=== PATIENT | male | born 1955 | race Caucasian/White ===

== ENCOUNTER → 2016-03-07 | Outpatient (CLI) | payer BC ==
[~2016-03-07] MED LIST: /NITR4TASL SL; ACET50TA PO; ALDA25TA2 PO; ALLO300T2 PO; ASPI325T PO; ASPI32ECTA PO; ATOR1TAB19 PO; AUGM12TA3 PO; BUME0.5T PO; BUME1TAB13 PO; BYET10IN SC; CARV25TA PO; CORE25TA PO; GLIM1TAB PO; GLIM4TAB PO; GLUC4GMTAB PO; INSULANT SC; KLOR20TA PO; LISI2.5T PO; METO2.5T PO; MULTTAB4 PO; PROBCAP4 PO; SPIR25TA2 PO; ZEST2.5T3 PO; [UNRECOGNIZED DRUG - CODE] PO; [UNRECOGNIZED DRUG - OTHER] OR; [UNRECOGNIZED DRUG - OTHER] PO
[2016-03-07 14:02] LABS: ALBUMIN 3.5 GM/DL (3.2-5.2); ALBUMIN/GLOBULIN RATIO 0.9 (1.00-1.93); BILIRUBIN,TOTAL 0.4 MG/DL (0.2-1.0); CREATININE FOR GFR 1.75 MG/DL (0.70-1.30); GLOMERULAR FILTRATION RATE 42.3 (>49); POTASSIUM SERUM 5.1 MEQ/L (3.5-5.1); TOTAL PROTEIN 7.4 GM/DL (6.4-8.2)
== END ==
LOC: M LAB 06:06
PROVIDERS: ATTEND Physician Assistant
DX: I50.32 Chronic diastolic (congestive) heart failure (principal); I25.10 Atherosclerotic heart disease of native coronary artery without angina pectoris; E78.00 Pure hypercholesterolemia, unspecified; E83.42 Hypomagnesemia

== ENCOUNTER → 2016-10-11 | Outpatient (CLI) | payer BC ==
[~2016-10-11] MED LIST changes: +ATOR80TA59 PO; +INVO100T PO; +LEVO25TA5 PO; +MAGN64TASA PO; +NOVOINJ3; +TOUJ1.2I SC
[2016-10-11 07:07] LABS: ALBUMIN 3.3 GM/DL (3.2-5.2); ALBUMIN/GLOBULIN RATIO 0.79 (1.00-1.93); BILIRUBIN,TOTAL 0.6 MG/DL (0.2-1.0); CALCIUM LEVEL 9.5 MG/DL (8.8-10.2); CREATININE FOR GFR 1.48 MG/DL (0.70-1.30); GLOMERULAR FILTRATION RATE 51.3 (>49); MAGNESIUM LEVEL 2.2 MG/DL (1.8-2.4); POTASSIUM SERUM 4.2 MEQ/L (3.5-5.1); TOTAL PROTEIN 7.5 GM/DL (6.4-8.2)
== END ==
LOC: M LAB 06:10
PROVIDERS: ATTEND Physician Assistant
DX: I50.32 Chronic diastolic (congestive) heart failure (principal); E78.2 Mixed hyperlipidemia

== ENCOUNTER → 2016-10-31 | Outpatient (REF) | payer BC | LOC: M LAB REF 14:09 | PROVIDERS: ATTEND Podiatrist | DX: E11.9 Type 2 diabetes mellitus without complications (principal) ==

== ENCOUNTER 2016-12-11 07:51 | Day surgery (SDC) | payer BC ==
[~2016-12-11] VITALS: Ht 182.9 cm; Wt 127.0 kg
[2016-12-11] MEDS ORDERED: NS 1,000 ML IV SCH (08:45)
[2016-12-11] MEDS ORDERED: LIDOCAINE 2% INJ 100 MG/5 ML SDV (FOR ANES.) As Ordered ONE (09:27)
[2016-12-11] MEDS ORDERED: PROPOFOL 200 MG/20 ML VIAL As Ordered ONE (09:27)
--- NOTE | 2016-12-11 09:40 | ROOR ---
Patient Name: Joe Rodriguez Procedure Date: 12/11/2016 8:59 AM Date of : 1955 Age: 61 Room: [facility] Gender: Male Note Status: Finalized Procedure: Colonoscopy Indications: Screening for colorectal malignant neoplasm Providers: Lopez Hanna MD Referring MD: Samreen Rose NP Requesting Provider: Medicines: Monitored Anesthesia Care Complications: No immediate complications. Procedure: Pre-Anesthesia Assessment: - Prior to the procedure, a History and Physical was performed, and patient medications and allergies were reviewed. The patient is competent. The risks and benefits of the procedure and the sedation options and risks were discussed with the patient. All questions were answered and informed consent was obtained. Patient identification and proposed procedure were verified by the physician, the nurse and the supervisor kennel in the procedure room. Mental Status Examination: alert and oriented. Airway Examination: normal oropharyngeal airway and neck mobility. Respiratory Examination: clear to auscultation. CV Examination: normal. Prophylactic Antibiotics: The patient does not require prophylactic antibiotics. Prior Anticoagulants: The patient has taken no previous anticoagulant or antiplatelet agents. ASA Grade Assessment: III - A patient with severe systemic disease. After reviewing the risks and benefits, the patient was deemed in satisfactory condition to undergo the procedure. The anesthesia plan was to use monitored anesthesia care (MAC). Immediately prior to administration of medications, the patient was re-assessed for adequacy to receive sedatives. The heart rate, respiratory rate, oxygen saturations, blood pressure, adequacy of pulmonary ventilation, and response to care were monitored throughout the procedure. The physical status of the patient was re-assessed after the procedure. The Colonoscope was introduced through the anus and advanced to the cecum, identified by appendiceal orifice and ileocecal valve. The colonoscopy was performed without difficulty. The patient tolerated the procedure well. The quality of the bowel preparation was adequate to identify polyps 6 mm and larger in size and fair. The ileocecal valve, appendiceal orifice, and rectum were photographed. Scope insertion time was 3 minutes. Scope withdrawal time was 10 minutes. The total duration of the procedure was 16 minutes. Findings: The perianal and digital rectal examinations were normal. Three sessile polyps were found in the ascending colon. The polyps were 2 to 3 mm in size. These polyps were removed with a cold biopsy forceps. Resection and retrieval were complete. Verification of patient identification for the specimen was done by the physician and nurse using the patient's name, date and medical record number. Estimated blood loss was minimal. A 3 mm polyp was found in the transverse colon. The polyp was sessile. The polyp was removed with a cold biopsy forceps. Resection and retrieval were complete. Two sessile polyps were found in the recto-sigmoid colon. The polyps were 3 to 4 mm in size. These polyps were removed with a cold biopsy forceps. Resection and retrieval were complete. Discontinuous areas of nonbleeding ulcerated mucosa with no stigmata of recent bleeding were present in the transverse colon and in the ascending colon. Biopsies were taken with a cold forceps for histology. External and internal hemorrhoids were found during retroflexion. The hemorrhoids were small. Impression: - Preparation of the colon was fair. - Three 2 to 3 mm polyps in the ascending colon, removed with a cold biopsy forceps. Resected and retrieved. - One 3 mm polyp in the transverse colon, removed with a cold biopsy forceps. Resected and retrieved. - Two 3 to 4 mm polyps at the recto-sigmoid colon, removed with a cold biopsy forceps. Resected and retrieved. - Mucosal ulceration. Biopsied. - External and internal hemorrhoids. Recommendation: - Patient has a contact number available for emergencies. The signs and symptoms of potential delayed complications were discussed with the patient. Return to normal activities tomorrow. Written discharge instructions were provided to the patient. - Resume previous diet. - Continue present medications. - Await pathology results. - Repeat colonoscopy in 3 - 5 years for surveillance based on pathology results. - Return to GI clinic as previously scheduled on 12/21/2016 at 11:15 AM. - Return to primary care physician. Lopez Hanna MD Lopze Hanna MD 12/11/2016 9:40:17 AM This report has been signed electronically. Number of Addenda: 0 Note Initiated On: 12/11/2016 8:59 AM Estimated Blood Loss: Estimated blood loss was minimal.
[2016-12-11 10:04] VITALS: BP 93/59
== END 2016-12-11 10:00 | disposition home or self-care (01) ==
LOC: M OPP 07:51 → EDSTATUS 08:45 → M OPP 10:00
PROVIDERS: ATTEND Internal Medicine Gastroenterology
DX: Z12.11 Encounter for screening for malignant neoplasm of colon (principal); K63.5 Polyp of colon; D12.3 Benign neoplasm of transverse colon; K63.3 Ulcer of intestine; I25.10 Atherosclerotic heart disease of native coronary artery without angina pectoris; I10 Essential (primary) hypertension; E78.00 Pure hypercholesterolemia, unspecified; E11.21 Type 2 diabetes mellitus with diabetic nephropathy; E03.9 Hypothyroidism, unspecified; M10.9 Gout, unspecified; G62.9 Polyneuropathy, unspecified; Z87.891 Personal history of nicotine dependence; Z79.899 Other long term (current) drug therapy; Z79.82 Long term (current) use of aspirin; Z95.1 Presence of aortocoronary bypass graft

== ENCOUNTER → 2017-01-11 | Outpatient (CLI) | payer BC ==
[2017-01-11 07:17] LABS: ALBUMIN 3.4 GM/DL (3.2-5.2); CALCIUM LEVEL 9.1 MG/DL (8.8-10.2); CREATININE FOR GFR 1.96 MG/DL (0.70-1.30); MAGNESIUM LEVEL 2.3 MG/DL (1.8-2.4); PHOSPHORUS LEVEL 3.1 MG/DL (2.5-4.9)
== END ==
LOC: M LAB 06:12
PROVIDERS: ATTEND Physician Assistant
DX: I50.32 Chronic diastolic (congestive) heart failure (principal); E83.42 Hypomagnesemia

== ENCOUNTER → 2017-01-23 | Outpatient (CLI) | payer BC ==
--- NOTE | 2017-01-23 16:30 | REP ---
Clinical: Recent trauma with continued pain and swelling . Technique: Trevino scale and color Doppler evaluation using linear high frequency transducer. Findings: Ultrasound examination of the left lower extremity deep venous structures from the common femoral vein to the popliteal vein demonstrates normal compressibility flow and wave patterns in response to respiration and augmentation. There is no evidence for deep venous thrombosis. Impression: No evidence for deep venous thrombosis. Signed by Adrien Dey MD 01/23/2017 03:42 P
== END ==
LOC: M RAD 14:52
PROVIDERS: ATTEND Podiatrist
DX: I82.432 Acute embolism and thrombosis of left popliteal vein (principal)

== ENCOUNTER → 2017-04-02 | Outpatient (CLI) | payer BC | LOC: M RAD 14:04 | DX: M66.372 Spontaneous rupture of flexor tendons, left ankle and foot (principal) | CPT/HCPCS: 73721 ==

== ENCOUNTER → 2017-07-15 | Outpatient (CLI) | payer BC ==
[2017-07-15 07:33] LABS: ALBUMIN 3.6 GM/DL (3.2-5.2); ANION GAP 6 MEQ/L (8-16); BLOOD UREA NITROGEN 42 MG/DL (7-18); CALCIUM LEVEL 9.3 MG/DL (8.8-10.2); CARBON DIOXIDE LEVEL 33 MEQ/L (21-32); CHLORIDE LEVEL 98 MEQ/L (98-107); CREATININE FOR GFR 1.48 MG/DL (0.70-1.30); GLOMERULAR FILTRATION RATE 51.1 (>49); GLUCOSE, FASTING 218 MG/DL (70-100); PHOSPHORUS LEVEL 3.3 MG/DL (2.5-4.9); POTASSIUM SERUM 3.9 MEQ/L (3.5-5.1); SODIUM LEVEL 137 MEQ/L (136-145)
== END ==
LOC: M LAB 06:23
DX: I50.32 Chronic diastolic (congestive) heart failure (principal)
CPT/HCPCS: 80069

== ENCOUNTER → 2017-09-17 | Outpatient (REF) | payer BC | LOC: M LAB REF 17:24 | DX: L03.039 Cellulitis of unspecified toe (principal) | CPT/HCPCS: 87186 ==

== ENCOUNTER 2017-09-27 12:38 | Day surgery (SDC) | payer BC ==
[~2017-09-27 12:38] MED LIST changes: -/NITR4TASL SL; -ACET50TA PO; -ALDA25TA2 PO; -ALLO300T2 PO; -ASPI325T PO; -ASPI32ECTA PO; -ATOR1TAB19 PO; -ATOR80TA59 PO; -AUGM12TA3 PO; -BUME0.5T PO; -BUME1TAB13 PO; -BYET10IN SC; -CARV25TA PO; -CORE25TA PO; -GLIM1TAB PO; -GLIM4TAB PO; -GLUC4GMTAB PO; -INSULANT SC; -INVO100T PO; -KLOR20TA PO; -LEVO25TA5 PO; -LISI2.5T PO; +LR 1,000 ML IV; -MAGN64TASA PO; -METO2.5T PO; -MULTTAB4 PO; -NOVOINJ3; -PROBCAP4 PO; -SPIR25TA2 PO; -TOUJ1.2I SC; -ZEST2.5T3 PO; -[UNRECOGNIZED DRUG - CODE] PO; -[UNRECOGNIZED DRUG - OTHER] OR; -[UNRECOGNIZED DRUG - OTHER] PO
[2017-09-27] MEDS ORDERED: LIDOCAINE 2% INJ 100 MG/5 ML SDV (FOR ANES.) As Ordered ×2 (13:36)
[2017-09-27] MEDS ORDERED: fentaNYL 100 MCG/2 ML INJECTION (J3010) As Ordered ×2 (13:36)
[2017-09-27] MEDS ORDERED: MIDAZOLAM INJ 2 MG/2 ML VIAL (J2250) As Ordered ×2 (13:36)
[2017-09-27] MEDS ORDERED: PROPOFOL 200 MG/20 ML VIAL As Ordered ×4 (13:36→14:19)
[2017-09-27] MEDS ORDERED: CARVedilol 6.25 MG TAB As Ordered ×2 (13:48)
[2017-09-27 13:52] LABS: BEDSIDE GLUCOSE 268 MG/DL (80-115)
[2017-09-27] MEDS: CARVedilol 12.5 MG TAB PO ×2 (13:52)
[2017-09-27] MEDS ORDERED: HumaLOG INSULIN (NovoLOG) PER UNIT As Ordered ×2 (13:57)
[2017-09-27] MEDS: HumaLOG INSULIN (NovoLOG) PER UNIT SC ×2 (14:00)
[2017-09-27] MEDS: BUPIVACAINE HCL 0.5% 10 ML VIAL As Ordered ×2 (14:14)
[2017-09-27] MEDS: LIDOCAINE 2% MDV 20 ML VIAL As Ordered ×2 (14:14)
[2017-09-27] MEDS: UNASYN 1.5 GM VIAL As Ordered ×2 (14:41)
[2017-09-27] MEDS ORDERED: LR 1,000 ML IV ×2 (15:30)
[2017-09-27] MEDS ORDERED: HYDROMORPHONE HCL 0.5 MG/ 0.5 ML SYRINGE (J1170 PER 1) IV ×2 (15:30)
[2017-09-27] MEDS ORDERED: PERCOCET 5MG/325MG TAB PO ×2 (15:30)
[2017-09-27] MEDS ORDERED: ONDANSETRON 4MG/2ML VIAL (J2405) IV ×2 (15:30)
[2017-09-27] MEDS ORDERED: fentaNYL 100 MCG/2 ML INJECTION (J3010) IV ×2 (15:30)
== END 2017-09-27 15:56 | disposition home or self-care (01) ==
LOC: M SDC 12:38
DX: M86.172 Other acute osteomyelitis, left ankle and foot (principal); I25.10 Atherosclerotic heart disease of native coronary artery without angina pectoris; I10 Essential (primary) hypertension; E78.00 Pure hypercholesterolemia, unspecified; M10.9 Gout, unspecified; E11.9 Type 2 diabetes mellitus without complications; E03.9 Hypothyroidism, unspecified; Z95.1 Presence of aortocoronary bypass graft; Z79.82 Long term (current) use of aspirin; Z79.4 Long term (current) use of insulin; Z79.899 Other long term (current) drug therapy
CPT/HCPCS: 28825

== ENCOUNTER → 2018-02-04 | Outpatient (CLI) | payer BC ==
[2018-02-04 07:51] LABS: ANION GAP 6 MEQ/L (8-16); BLOOD UREA NITROGEN 45 MG/DL (7-18); CALCIUM LEVEL 8.8 MG/DL (8.8-10.2); CARBON DIOXIDE LEVEL 33 MEQ/L (21-32); CHLORIDE LEVEL 95 MEQ/L (98-107); CREATININE FOR GFR 1.65 MG/DL (0.70-1.30); GLOMERULAR FILTRATION RATE 44.9 (>49); GLUCOSE, FASTING 278 MG/DL (70-100); MAGNESIUM LEVEL 1.8 MG/DL (1.8-2.4); POTASSIUM SERUM 4.3 MEQ/L (3.5-5.1); SODIUM LEVEL 134 MEQ/L (136-145)
== END ==
LOC: M LAB 06:43
DX: I50.32 Chronic diastolic (congestive) heart failure (principal); E83.42 Hypomagnesemia
CPT/HCPCS: 83735

== ENCOUNTER 2018-02-18 03:23 | Emergency (ER) | payer BC ==
[~2018-02-18] VITALS: Ht 185.4 cm; Wt 129.1 kg
[~2018-02-18 03:23] MED LIST changes: +/NITR4TASL SL; +ACET50TA PO; +ALDA25TA2 PO; +ALLO300T2 PO; +ASPI325T PO; +ASPI32ECTA PO; +ATOR1TAB19 PO; +ATOR80TA59 PO; +AUGM12TA3 PO; +BUME0.5T PO; +BUME1TAB13 PO; +BYDU1INJ SC; +BYET10IN SC; +CARV25TA PO; +CORE25TA PO; +GLIM1TAB PO; +GLIM4TAB PO; +GLUC4GMTAB PO; +INSULANT SC; +INVO100T PO; +KLOR20TA PO; +LEVO25TA5 PO; +LISI2.5T PO; -LR 1,000 ML IV; +MAGN64TASA PO; +METO2.5T PO; +MULTTAB4 PO; +NOVOINJ3; +PROBCAP4 PO; +SPIR25TA2 PO; +TOUJ1.2I SC; +TRES1INJ2 SC; +ZEST2.5T3 PO; +[UNRECOGNIZED DRUG - CODE] PO; +[UNRECOGNIZED DRUG - OTHER] OR; +[UNRECOGNIZED DRUG - OTHER] PO
[2018-02-18] MEDS ORDERED: TETANUS/DIPHTHERIA TOX ADSORB ADULT 0.5ML SYR/VIAL (90714) IM ONE (04:15)
--- NOTE | 2018-02-18 04:57 | REPVR ---
EXAM: CT Head Without Contrast EXAM DATE/TIME: 02/18/2018 4:04 AM CLINICAL HISTORY: 62 years old, male; Injury or trauma; Fall; Additional info: Tr TECHNIQUE: Axial computed tomography images of the head/brain without contrast. All CT scans at this facility use at least one of these dose optimization techniques: automated exposure control; mA and/or kV adjustment per patient size (includes targeted exams where dose is matched to clinical indication); or iterative reconstruction. COMPARISON: No relevant prior studies available. FINDINGS: Brain: There is 8mm old lacunar infarct versus prominent Virchow-Juvenal space in the left basal ganglia. Ventricles: There is a cerebral atrophy with secondary ventricular dilatation. Bones/joints: Normal. No acute fracture. Sinuses: Normal as visualized. No acute sinusitis. Mastoid air cells: Normal as visualized. No mastoid effusion. Soft tissues: Normal. IMPRESSION: 1. No CT evidence of intracranial hemorrhage, mass effect or midline shift. 2. Age related cerebral atrophy. 3. 8mm left basal ganglia old lacunar infarct vs prominent Virchow-Juvenal space. Electronically signed by: Perfecto Pruitt On 02/18/2018 04:57:13 AM
--- NOTE | 2018-02-18 06:08 | ECGEPIP ---
Stationary ECG Study [facility] - ED Test Date: 2018-02-18 Pat Name: ROMAINE GALEAS Department: Room: - Gender: M [employer] Teacher: edson : 1955 Requested By: CHON CANDELARIO Order Number: [id number] Reading MD: Emil Hernandez Measurements Intervals [place] Rate: 69 P: 83 [place]: 210 QRS: 35 QRSD: 100 T: 62 QT: 411 QTc: 443 Interpretive Statements SINUS RHYTHM WITH FIRST DEGREE AV BLOCK MINIMAL ST DEPRESSION SIMILAR TO 05/27/12 Electronically Signed On 02-18-2018 6:07:56 EST by Emil Hernandez
[2018-02-18 06:30] VITALS: BP 106/62
[2018-02-18] MEDS ORDERED: NEOSPORIN OINT 0.9 GM PKT (FLOOR STOCK) As Ordered ONE (06:38)
--- NOTE | 2018-02-22 08:46 | ED PDOC ---
Post-Departure Follow-Up radiology report faxed to Thi Cole MD Feb 22, 2018 08:46
== END 2018-02-18 06:41 | disposition home or self-care (01) ==
LOC: M ED 03:23
DX: S01.01XA Laceration without foreign body of scalp, initial encounter (principal); W01.198A Fall on same level from slipping, tripping and stumbling with subsequent striking against other object, initial encounter; Y92.091 Bathroom in other non-institutional residence as the place of occurrence of the external cause; I11.9 Hypertensive heart disease without heart failure; I25.10 Atherosclerotic heart disease of native coronary artery without angina pectoris; E11.9 Type 2 diabetes mellitus without complications; Z79.899 Other long term (current) drug therapy; Z79.82 Long term (current) use of aspirin; Z79.4 Long term (current) use of insulin

== ENCOUNTER → 2018-07-31 | Outpatient (REF) | payer BC ==
[~2018-07-31] MED LIST changes: -/NITR4TASL SL; -ACET50TA PO; -GLUC4GMTAB PO; +LEAD1CHW PO; +MAPA500T17 PO; +NITR0.4S SL
[2018-08-01 14:08] LABS: PHOSPHORUS LEVEL 3.9 MG/DL (2.5-4.9)
[2018-08-04 10:49] LABS: PTH INTACT 17.9 PG/ML (18.5-88.0)
== END ==
LOC: M LAB REF 13:08
PROVIDERS: ATTEND Nurse Practitioner Adult Health
DX: N18.3 Chronic kidney disease, stage 3 (moderate) (principal)

== ENCOUNTER 2019-03-09 07:11 | Emergency (ER) | payer BC ==
[~2019-03-09] VITALS: Ht 185.4 cm; Wt 135.4 kg
[2019-03-09 08:39] LABS: BASO % 0.6 % (0.0-1.0); EOS # 0.3 10^3/uL (0.0-0.5); EOS % 4.2 % (0.0-3.0); HEMATOCRIT 41.5 % (42.0-52.0); HEMOGLOBIN 13.3 g/dl (13.5-17.5); LYMPH % 13.5 % (24.0-44.0); MEAN CORPUSCULAR HEMOGLOBIN 31.3 pg (27.0-33.0); MEAN CORPUSCULAR VOLUME 97.6 fl (80.0-96.0); MONO # 0.7 10^3/uL (0.0-0.8); MONO % 10.3 % (0.0-5.0); NEUTROPHILS # 5.1 10^3/uL (1.5-8.5); NEUTROPHILS % 70.8 % (36.0-66.0); PLATELET COUNT, AUTOMATED 157 10^3/uL (150-450); RED BLOOD COUNT 4.25 10^6/uL (4.30-6.10); WHITE BLOOD COUNT 7.2 10^3/uL (4.0-10.0)
--- NOTE | 2019-03-09 08:55 | REP ---
INDICATION: Right arm seizure PROCEDURE: CT head without contrast COMPARISON STUDIES: 02/18/2018 FINDINGS: There is a mixed density subdural collection on the left that is greater toward the convexity and measures up to 15 mm. This was not evident on the comparison study of February 13, 2019. The ventricles, cisterns and sulci within normal limits. There is no appreciable midline shift. No significant or herniation. IMPRESSION: Mixed density subdural collection over the left hemisphere and in the vicinity of the central sulcus that could correlate to the patient's symptoms. This collection appears to be mostly chronic, but small amount of high-density material layering is concerning for [id number] process. Findings discussed with Dr. Trevino in the emergency department at the time of interpretation. Electronically Signed by Shabbir Varner MD 03/09/2019 08:47 A
[2019-03-09] MEDS ORDERED: levETIRAcetam INJection 1,000 MG in D5W 100 ML IV ONE (09:00)
[2019-03-09] MEDS ORDERED: levETIRAcetam INJection 2,000 MG in D5W 100 ML IV ONE (09:00)
[2019-03-09 09:14] LABS: CALCIUM LEVEL 9.3 MG/DL (8.8-10.2); CREATININE FOR GFR 1.29 MG/DL (0.70-1.30); FREE T4 0.92 NG/DL (0.76-1.46); GLOMERULAR FILTRATION RATE 59.5 (>49); MAGNESIUM LEVEL 1.8 MG/DL (1.8-2.4); POTASSIUM SERUM 4.4 MEQ/L (3.5-5.1); THYROID STIMULATING HORMONE 3.87 uIU/ML (0.358-3.740)
[2019-03-09 09:26] LABS: INR 1.06; PROTHROMBIN TIME 13.5 SECONDS (11.8-14.0)
[2019-03-09 09:27] LABS: PARTIAL THROMBOPLASTIN TIME 30.9 SECONDS (25.0-38.4)
[2019-03-09 10:02] VITALS: BP 142/67
== END 2019-03-09 10:04 | disposition short-term general hospital (02) ==
LOC: M ED 07:11
DX: G40.89 Other seizures (principal); I62.00 Nontraumatic subdural hemorrhage, unspecified; E10.9 Type 1 diabetes mellitus without complications; I50.9 Heart failure, unspecified; E78.9 Disorder of lipoprotein metabolism, unspecified; E07.9 Disorder of thyroid, unspecified; E87.6 Hypokalemia; E61.2 Magnesium deficiency; Z79.899 Other long term (current) drug therapy; Z79.82 Long term (current) use of aspirin; Z79.4 Long term (current) use of insulin; Z79.890 Hormone replacement therapy
CPT/HCPCS: 70450; 80048; 83735; 84439; 84443; 85025; 85610; 85730; 86850; 86900; 86901; 96365; 99291; J1953

== ENCOUNTER → 2019-04-09 | Outpatient (CLI) | payer BC, OTHER ==
--- NOTE | 2019-04-09 10:28 | REP ---
CT BRAIN WITHOUT: REPEAT DICTATION. HISTORY: Evaluate for left subdural hematoma. Preliminary report is provided at the time of exam by [facility]. Comparison CT study, March 09, 2019. CT FINDINGS: In the interval since the prior study, the size of the mixed density left subdural hematoma has decreased considerably. On coronal multiplanar re-formation images, its greatest thickness is 5 mm today, previously 10 mm. There is diffuse cerebral atrophy. No parenchymal hemorrhage. No other intracranial hemorrhage is seen. No mass or midline shift is seen. No evidence of infarction. IMPRESSION: Improvement noted in the size of the left convexity mixed density subdural hematoma. Electronically Signed by Matthew Loving MD 04/09/2019 01:06 P
== END ==
LOC: M RAD 08:28
PROVIDERS: ATTEND Physician Assistant Medical
DX: S06.5X9A Traumatic subdural hemorrhage with loss of consciousness of unspecified duration, initial encounter (principal)

== ENCOUNTER → 2021-04-10 | Outpatient (CLI) | payer MEDICARE | LOC: M LABSMTC 09:21 | PROVIDERS: ATTEND Physician Assistant | DX: I25.10 Atherosclerotic heart disease of native coronary artery without angina pectoris (principal); Z86.16 Personal history of COVID-19 ==

== ENCOUNTER → 2021-12-25 | Outpatient (CLI) | payer MEDICARE | LOC: M RAD 08:36 | PROVIDERS: ATTEND Internal Medicine Nephrology | DX: N18.31 Chronic kidney disease, stage 3a (principal); I70.1 Atherosclerosis of renal artery ==

== ENCOUNTER → 2022-02-27 | Outpatient (CLI) | payer MEDICARE ==
[~2022-02-27] MED LIST changes: +ASPI81CH33 PO; +BUME2TAB3; +DULA3PEN SQ; +ELIQ5TAB PO; +HUMA50IN4 SQ; +LISI2.5T9 PO; +METO25TA PO; +NITR0.4S14 PO; +POTA-151 PO; +SPIR-10 PO; +TRES1INJ SQ
== END ==
LOC: M LABSMTC 11:45
PROVIDERS: ATTEND Anesthesiology
DX: Z01.812 Encounter for preprocedural laboratory examination (principal); Z11.52 Encounter for screening for COVID-19

== ENCOUNTER 2022-03-02 06:26 | Day surgery (SDC) | payer MEDICARE ==
[~2022-03-02] VITALS: Ht 185.4 cm; Wt 127.9 kg
[~2022-03-02 06:26] MED LIST changes: +NS 1,000 ML IV ONE
[2022-03-02] MEDS ORDERED: SIMETHICONE 40MG/0.6ML DROPS 30ML As Ordered ONE (07:13)
[2022-03-02] MEDS ORDERED: propofoL 200 MG/20 ML VIAL As Ordered ONE ×2 (07:29→07:44)
[2022-03-02 08:30] VITALS: BP 119/57
== END 2022-03-02 08:37 | disposition home or self-care (01) ==
LOC: M OPP 06:26
PROVIDERS: ATTEND Internal Medicine Gastroenterology
DX: Z86.010 Personal history of colon polyps (principal); K63.5 Polyp of colon; K57.30 Diverticulosis of large intestine without perforation or abscess without bleeding; K64.8 Other hemorrhoids; I25.10 Atherosclerotic heart disease of native coronary artery without angina pectoris; Z95.1 Presence of aortocoronary bypass graft; I10 Essential (primary) hypertension; E78.5 Hyperlipidemia, unspecified; E11.40 Type 2 diabetes mellitus with diabetic neuropathy, unspecified; M10.9 Gout, unspecified; E03.9 Hypothyroidism, unspecified; Z87.891 Personal history of nicotine dependence; Z79.01 Long term (current) use of anticoagulants; Z79.4 Long term (current) use of insulin; Z79.82 Long term (current) use of aspirin; Z79.85 Long-term (current) use of injectable non-insulin antidiabetic drugs; Z79.890 Hormone replacement therapy; Z79.899 Other long term (current) drug therapy; Z82.49 Family history of ischemic heart disease and other diseases of the circulatory system

== ENCOUNTER 2022-03-05 20:08 | Emergency (ER) | payer MEDICARE ==
[~2022-03-05] VITALS: Ht 185.4 cm; Wt 128.8 kg
[~2022-03-05 20:08] MED LIST changes: +DULA3PEN SC; -DULA3PEN SQ; +HUMA50IN4 SC; -HUMA50IN4 SQ; -NS 1,000 ML IV ONE; +TRES1INJ SC; -TRES1INJ SQ
[2022-03-05] MEDS ORDERED: ACETAMINOPHEN TAB 650MG DOSE (2X325MG) PO ONE (20:35)
[2022-03-06 00:58] LABS: ALBUMIN 3.4 G/DL (3.2-5.2); BILIRUBIN,DIRECT 0.4 MG/DL (<0.4); BILIRUBIN,TOTAL 0.9 MG/DL (0.3-1.2); CALCIUM LEVEL 9.5 MG/DL (8.3-10.6); CREATININE FOR GFR 1.66 MG/DL (0.70-1.30); GLOMERULAR FILTRATION RATE 44.1 (>49); POTASSIUM SERUM 4.2 MMOL/L (3.5-5.1); TOTAL PROTEIN 6.9 G/DL (5.7-8.2)
[2022-03-06 01:07] LABS: BASO % 0.3 % (0.0-1.0); EOS # 0.3 10^3/uL (0.0-0.5); EOS % 1.8 % (0.0-3.0); HEMATOCRIT 37.8 % (42.0-52.0); HEMOGLOBIN 12.5 g/dl (13.5-17.5); LYMPH # 1.2 10^3/uL (1.5-5.0); LYMPH % 8.7 % (24.0-44.0); MEAN CORPUSCULAR HEMOGLOBIN 33.1 pg (27.0-33.0); MEAN CORPUSCULAR HGB CONC 33.1 g/dl (32.0-36.5); NEUTROPHILS # 10.9 10^3/uL (1.5-8.5); NEUTROPHILS % 76.7 % (36.0-66.0); PLATELET COUNT, AUTOMATED 160 10^3/uL (150-450); RED BLOOD COUNT 3.78 10^6/uL (4.30-6.10); WHITE BLOOD COUNT 14.2 10^3/uL (4.0-10.0)
[2022-03-06 01:30] LABS: MONO # 1.7 10^3/uL (0.0-0.8)
[2022-03-07] MEDS ORDERED: CIPR250T3 PO (00:40)
[2022-03-07] MEDS ORDERED: BUME2TAB3 PO (00:40)
[2022-03-07] MEDS ORDERED: ASPI-161 PO (00:40)
[2022-03-07] MEDS ORDERED: ACET-897 PO (00:40)
[2022-03-07] MEDS ORDERED: SYNT25TA PO (00:40)
[2022-03-07] MEDS ORDERED: METO25TA PO (00:40)
== END 2022-03-06 01:06 | disposition left against medical advice (07) ==
LOC: M ED 20:08
DX: Z53.21 Procedure and treatment not carried out due to patient leaving prior to being seen by health care provider (principal)

== ENCOUNTER 2022-03-06 21:12 | Inpatient (IN) | payer MEDICARE ==
[~2022-03-06] VITALS: Ht 185.4 cm; Wt 125.9 kg
[2022-03-06] MEDS ORDERED: ACETAMINOPHEN TAB 650MG DOSE (2X325MG) PO ONE (21:50)
[2022-03-06] MEDS ORDERED: cefTRIAXone SOD 2 GM in D5W MINI-BAG PLUS 50 ML IV ONE (21:55)
[2022-03-06 21:58] LABS: BASO % 0.3 % (0.0-1.0); EOS # 0.1 10^3/uL (0.0-0.5); EOS % 1.1 % (0.0-3.0); HEMATOCRIT 38.5 % (42.0-52.0); HEMOGLOBIN 12.9 g/dl (13.5-17.5); LYMPH # 0.2 10^3/uL (1.5-5.0); LYMPH % 2.7 % (24.0-44.0); MEAN CORPUSCULAR HEMOGLOBIN 33.2 pg (27.0-33.0); MEAN CORPUSCULAR HGB CONC 33.5 g/dl (32.0-36.5); MONO # 0.3 10^3/uL (0.0-0.8); NEUTROPHILS # 8.4 10^3/uL (1.5-8.5); NEUTROPHILS % 92.5 % (36.0-66.0); PLATELET COUNT, AUTOMATED 147 10^3/uL (150-450); RED BLOOD COUNT 3.89 10^6/uL (4.30-6.10)
[2022-03-06 22:20] LABS: INR 1.37; PROTHROMBIN TIME 17.1 SECONDS (12.5-14.5)
[2022-03-06] MEDS ORDERED: NS IV ONE (22:30)
[2022-03-06 22:33] LABS: APPEARANCE, URINE MANUAL CLOUDY (CLEAR); COLOR, URINE MANUAL YELLOW (YELLOW)
[2022-03-06 22:33] LABS: ABG BASE EXCESS -1.6 (-2.0-2.0); ABG O2 SATURATION 96.3 % (95.0-99.0); ABG PARTIAL PRESSURE CO2 33.5 mmHg (35.0-45.0); ABG PARTIAL PRESSURE O2 84.9 mmHg (75.0-100.0); ABG STANDARD HCO3 23.1 MEQ/L (22.0-26.0); ABG pH (ARTERIAL) 7.435 UNITS (7.350-7.450)
[2022-03-06 22:34] LABS: BILIRUBIN, URINE MANUAL NEGATIVE (NEGATIVE); BLOOD URINE MANUAL POSITIVE (NEGATIVE); GLUCOSE, URINE (UA) MANUAL NEGATIVE (NEGATIVE); KETONE, URINE MANUAL NEGATIVE (NEGATIVE); LEUKOCYTE ESTERASE, URINE MAN POSITIVE (NEGATIVE); NITRITE, URINE MANUAL NEGATIVE (NEGATIVE); PROTEIN, URINE MANUAL 2+ mg/dL (NEGATIVE); SPECIFIC GRAVITY,URINE MANUAL 1.015 (1.002-1.035); UROBILINOGEN, URINE MANUAL NORMAL (NORMAL)
[2022-03-06 22:46] LABS: WBC, URINE TNTC /hpf (0-3)
[2022-03-06 22:48] LABS: BACTERIA, URINE MOD AMOUNT; HYALINE CAST, URINE NONE SEEN /lpf (0-1); SQUAMOUS EPITHELIAL CELL URINE SMALL AMOUNT /hpf (SMALL AMT)
[2022-03-06 23:00] LABS: CK-MB VALUE MASS 2.1 NG/ML (<3.6); MB/CK RELATIVE INDEX 0.88 (< OR =4)
[2022-03-06 23:05] LABS: THYROID STIMULATING HORMONE 2.671 uIU/ML (0.55-4.78)
[2022-03-06 23:22] LABS: ALBUMIN 3.3 G/DL (3.2-5.2); BILIRUBIN,TOTAL 1.8 MG/DL (0.3-1.2); CALCIUM LEVEL 9.1 MG/DL (8.3-10.6); CREATININE FOR GFR 2.45 MG/DL (0.70-1.30); GLOMERULAR FILTRATION RATE 28.1 (>49); POTASSIUM SERUM 4.2 MMOL/L (3.5-5.1); TOTAL PROTEIN 7.2 G/DL (5.7-8.2)
[2022-03-07 00:21] LABS: CK-MB VALUE MASS 2.1 NG/ML (<3.6)
[2022-03-07 00:25] LABS: MB/CK RELATIVE INDEX 0.71 (< OR =4)
[2022-03-07] MEDS ORDERED: ASPI-161 PO (00:40)
[2022-03-07] MEDS ORDERED: SYNT25TA PO (00:40)
[2022-03-07] MEDS ORDERED: ACET-897 PO (00:40)
[2022-03-07] MEDS ORDERED: METO25TA PO (00:40)
[2022-03-07] MEDS ORDERED: CIPR250T3 PO (00:40)
[2022-03-07] MEDS ORDERED: BUME2TAB3 PO (00:40)
[2022-03-07] MEDS ORDERED: HOME MED LIST COMPLETE! XX SCH (00:40)
[2022-03-07] MEDS ORDERED: GLUCOSE 4GM CHEW TABLET PO PRN (04:15)
[2022-03-07] MEDS ORDERED: DEXTROSE 50% 50ML SYRINGE IV PRN (04:15)
[2022-03-07] MEDS ORDERED: GLUCAGON INJ 1MG VIAL SC PRN (04:15)
[2022-03-07] MEDS: NS 1,000 ML IV SCH ×4 (04:15→20:41)
[2022-03-07] MEDS ORDERED: MOM 30ML SUSPENSION UDC PO PRN (04:20)
[2022-03-07 04:50] LABS: HEMATOCRIT 31.2 % (42.0-52.0); MEAN CORPUSCULAR HEMOGLOBIN 33.1 pg (27.0-33.0); MEAN CORPUSCULAR HGB CONC 32.7 g/dl (32.0-36.5); MEAN CORPUSCULAR VOLUME 101.3 fl (80.0-96.0); PLATELET COUNT, AUTOMATED 132 10^3/uL (150-450); RED BLOOD COUNT 3.08 10^6/uL (4.30-6.10); WHITE BLOOD COUNT 20.5 10^3/uL (4.0-10.0)
[2022-03-07] MEDS ORDERED: PILL CUTTER 1 EACH XX PRN (04:50)
[2022-03-07 04:57] LABS: HEMOGLOBIN 10.2 g/dl (13.5-17.5)
[2022-03-07 05:19] LABS: ALBUMIN 2.5 G/DL (3.2-5.2); BILIRUBIN,TOTAL 0.7 MG/DL (0.3-1.2); CALCIUM LEVEL 7.6 MG/DL (8.3-10.6); CREATININE FOR GFR 2.59 MG/DL (0.70-1.30); GLOMERULAR FILTRATION RATE 26.4 (>49); POTASSIUM SERUM 3.9 MMOL/L (3.5-5.1); TOTAL PROTEIN 5.4 G/DL (5.7-8.2)
[2022-03-07] MEDS: LEVOTHYROXINE 25MCG TABLET (0.025MG) PO SCH (05:51)
[2022-03-07] MEDS: POTASSIUM CHLORIDE 10MEQ SR TABLET PO SCH (08:29)
[2022-03-07] MEDS: allopurinoL 300 MG TAB PO SCH (08:29)
[2022-03-07] MEDS: DOCUSATE SODIUM 100MG CAPSULE PO SCH ×2 (08:31→21:31)
[2022-03-07] MEDS: CARVedilol 12.5 MG TAB PO SCH ×2 (08:31→21:36)
[2022-03-07] MEDS: APIXABAN 2.5 MG TAB (ELIQUIS) PO SCH ×2 (08:31→21:31)
[2022-03-07] MEDS: ASPIRIN 81MG ENTERIC TABLET PO SCH (08:31)
[2022-03-07] MEDS: INSULIN LISPRO (NovoLOG) PER UNIT SC SCH ×4 (08:34→21:00)
[2022-03-07] MEDS ORDERED: metOLazone 2.5 MG TAB PO SCH (09:00)
[2022-03-07] MEDS ORDERED: SPIRONOLACTONE 25 MG TAB PO SCH (09:00)
[2022-03-07 10:15] LABS: HEMATOCRIT 34.4 % (42.0-52.0); HEMOGLOBIN 11.2 g/dl (13.5-17.5); MEAN CORPUSCULAR HEMOGLOBIN 33.2 pg (27.0-33.0); MEAN CORPUSCULAR HGB CONC 32.6 g/dl (32.0-36.5); MEAN CORPUSCULAR VOLUME 102.1 fl (80.0-96.0); PLATELET COUNT, AUTOMATED 123 10^3/uL (150-450); RED BLOOD COUNT 3.37 10^6/uL (4.30-6.10)
[2022-03-07 10:51] LABS: ATYPICAL LYMPH 1 % (0-5); HYPOCHROMASIA 1+; MONOCYTES 5 % (0-5); NEUTROPHILS 79 % (28-66)
[2022-03-07 10:52] LABS: PLATELET ESTIMATE NORMAL (NORMAL)
[2022-03-07] MEDS: ATORVASTATIN 20 MG TAB PO SCH (21:34)
[2022-03-07] MEDS: cefTRIAXone SOD 2 GM in D5W MINI-BAG PLUS 50 ML IV SCH (22:07)
[2022-03-07] MEDS ORDERED: ACETAMINOPHEN 325 MG TAB PO PRN (22:50)
[2022-03-08] VITALS (10 sets, daily range): BP systolic 115–142; BP diastolic 54–80; O2SAT 90–95
[2022-03-08] MEDS ORDERED: IPRATROPIUM 0.5MG/ALBUTEROL 2.5MG INH SOL UD 3ML (DUONEB) NEB PRN (03:25)
[2022-03-08 05:12] LABS: HEMATOCRIT 31.5 % (42.0-52.0); HEMOGLOBIN 10.2 g/dl (13.5-17.5); MEAN CORPUSCULAR HEMOGLOBIN 32.8 pg (27.0-33.0); MEAN CORPUSCULAR HGB CONC 32.4 g/dl (32.0-36.5); MEAN CORPUSCULAR VOLUME 101.3 fl (80.0-96.0); PLATELET COUNT, AUTOMATED 109 10^3/uL (150-450); RED BLOOD COUNT 3.11 10^6/uL (4.30-6.10)
[2022-03-08 05:32] LABS: MAGNESIUM LEVEL 1.5 MG/DL (1.8-2.4)
[2022-03-08 05:34] LABS: CALCIUM LEVEL 7.8 MG/DL (8.3-10.6); CREATININE FOR GFR 1.85 MG/DL (0.70-1.30); GLOMERULAR FILTRATION RATE 38.9 (>49); PHOSPHORUS LEVEL 2.5 MG/DL (2.4-5.1); POTASSIUM SERUM 4.3 MMOL/L (3.5-5.1)
[2022-03-08] MEDS: LEVOTHYROXINE 25MCG TABLET (0.025MG) PO SCH (06:12)
[2022-03-08] MEDS: CARVedilol 12.5 MG TAB PO SCH ×2 (07:59→20:33)
[2022-03-08] MEDS: POTASSIUM CHLORIDE 10MEQ SR TABLET PO SCH (07:59)
[2022-03-08] MEDS: DOCUSATE SODIUM 100MG CAPSULE PO SCH ×2 (07:59→20:28)
[2022-03-08] MEDS: ASPIRIN 81MG ENTERIC TABLET PO SCH (08:00)
[2022-03-08] MEDS: allopurinoL 300 MG TAB PO SCH (08:00)
[2022-03-08] MEDS: APIXABAN 2.5 MG TAB (ELIQUIS) PO SCH ×2 (08:00→20:34)
[2022-03-08] MEDS: INSULIN LISPRO (NovoLOG) PER UNIT SC SCH ×4 (08:00→20:10)
[2022-03-08] MEDS: MAG SULF 1GM/100ML (MAG RUN) 1 GM in IV 1 EA IV SCH ×2 (12:49→14:21)
[2022-03-08] MEDS ORDERED: BUMETANIDE 1MG/4ML VIAL IV ONE (15:00)
[2022-03-08] MEDS: ATORVASTATIN 20 MG TAB PO SCH (20:34)
[2022-03-08] MEDS: ACETAMINOPHEN TAB 650MG DOSE (2X325MG) PO PRN (20:34)
[2022-03-08] MEDS: cefTRIAXone SOD 2 GM in D5W MINI-BAG PLUS 50 ML IV SCH (22:42)
[2022-03-09] VITALS (11 sets, daily range): BP systolic 109–137; BP diastolic 51–70; O2SAT 89–96
[2022-03-09] MEDS: ACETAMINOPHEN TAB 650MG DOSE (2X325MG) PO PRN ×2 (04:28→22:21)
[2022-03-09] MEDS: LEVOTHYROXINE 25MCG TABLET (0.025MG) PO SCH (05:04)
[2022-03-09 08:08] LABS: HEMATOCRIT 30.8 % (42.0-52.0); MEAN CORPUSCULAR HEMOGLOBIN 32.8 pg (27.0-33.0); MEAN CORPUSCULAR HGB CONC 32.5 g/dl (32.0-36.5); PLATELET COUNT, AUTOMATED 107 10^3/uL (150-450); RED BLOOD COUNT 3.05 10^6/uL (4.30-6.10); WHITE BLOOD COUNT 4.7 10^3/uL (4.0-10.0)
[2022-03-09 08:30] LABS: MAGNESIUM LEVEL 1.9 MG/DL (1.8-2.4)
[2022-03-09 08:32] LABS: CALCIUM LEVEL 8.2 MG/DL (8.3-10.6); CREATININE FOR GFR 1.82 MG/DL (0.70-1.30); GLOMERULAR FILTRATION RATE 39.6 (>49); PHOSPHORUS LEVEL 2.6 MG/DL (2.4-5.1); POTASSIUM SERUM 4.1 MMOL/L (3.5-5.1)
[2022-03-09] MEDS: ASPIRIN 81MG ENTERIC TABLET PO SCH (08:42)
[2022-03-09] MEDS: INSULIN LISPRO (NovoLOG) PER UNIT SC SCH ×4 (08:42→20:19)
[2022-03-09] MEDS: allopurinoL 300 MG TAB PO SCH (08:43)
[2022-03-09] MEDS: APIXABAN 2.5 MG TAB (ELIQUIS) PO SCH ×2 (08:43→22:16)
[2022-03-09] MEDS: CARVedilol 12.5 MG TAB PO SCH ×2 (08:43→21:00)
[2022-03-09] MEDS: DOCUSATE SODIUM 100MG CAPSULE PO SCH ×2 (08:43→22:16)
[2022-03-09] MEDS: BUMETANIDE 1MG/4ML VIAL IV SCH ×2 (13:19→17:22)
[2022-03-09] MEDS ORDERED: NS 500 ML IV ONE (21:25)
[2022-03-09] MEDS: cefTRIAXone SOD 2 GM in D5W MINI-BAG PLUS 50 ML IV SCH (22:15)
[2022-03-09] MEDS: LEVEMIR (INSULIN DETEMIR) 1 UNITS/0.01ML SC SCH (22:16)
[2022-03-09] MEDS: ATORVASTATIN 20 MG TAB PO SCH (22:18)
[2022-03-10] MEDS: BUMETANIDE 1MG/4ML VIAL IV SCH ×4 (00:55→18:25)
[2022-03-10 04:00] VITALS: BP 133/68
[2022-03-10 04:38] LABS: HEMATOCRIT 31.2 % (42.0-52.0); HEMOGLOBIN 10.2 g/dl (13.5-17.5); MEAN CORPUSCULAR HEMOGLOBIN 32.6 pg (27.0-33.0); MEAN CORPUSCULAR HGB CONC 32.7 g/dl (32.0-36.5); MEAN CORPUSCULAR VOLUME 99.7 fl (80.0-96.0); PLATELET COUNT, AUTOMATED 109 10^3/uL (150-450); RED BLOOD COUNT 3.13 10^6/uL (4.30-6.10); WHITE BLOOD COUNT 6.2 10^3/uL (4.0-10.0)
[2022-03-10 04:58] LABS: MAGNESIUM LEVEL 1.8 MG/DL (1.8-2.4)
[2022-03-10 05:00] LABS: CALCIUM LEVEL 8.9 MG/DL (8.3-10.6); CREATININE FOR GFR 1.71 MG/DL (0.70-1.30); GLOMERULAR FILTRATION RATE 42.6 (>49); PHOSPHORUS LEVEL 3.1 MG/DL (2.4-5.1); POTASSIUM SERUM 3.5 MMOL/L (3.5-5.1)
[2022-03-10] MEDS: LEVOTHYROXINE 25MCG TABLET (0.025MG) PO SCH (05:59)
[2022-03-10 08:00] VITALS: BP 134/62
[2022-03-10] MEDS: ASPIRIN 81MG ENTERIC TABLET PO SCH (08:48)
[2022-03-10] MEDS: MAG SULF 1GM/100ML (MAG RUN) 1 GM in IV 1 EA IV SCH ×2 (08:48→10:58)
[2022-03-10] MEDS: allopurinoL 300 MG TAB PO SCH (08:48)
[2022-03-10] MEDS: CARVedilol 12.5 MG TAB PO SCH ×2 (08:49→21:00)
[2022-03-10] MEDS: APIXABAN 2.5 MG TAB (ELIQUIS) PO SCH (08:49)
[2022-03-10] MEDS: DOCUSATE SODIUM 100MG CAPSULE PO SCH ×2 (08:49→21:22)
[2022-03-10] MEDS: INSULIN LISPRO (NovoLOG) PER UNIT SC SCH ×4 (08:49→21:00)
[2022-03-10] MEDS ORDERED: BUMETANIDE 1 MG TAB PO SCH ×2 (09:00)
[2022-03-10 09:46] LABS: C REACTIVE PROTEIN QUANTITATIV 16.7 MG/DL (<1.0)
[2022-03-10 11:45] VITALS: BP 122/79
[2022-03-10] MEDS: LevoFLOXacin 750 MG TABLET PO SCH (15:10)
[2022-03-10] MEDS ORDERED: SILVER SULFADIAZINE 1% CR 50 GM JAR TOP PRN (16:15)
[2022-03-10 16:35] VITALS: BP 133/62
[2022-03-10 19:39] VITALS: BP 173/103
[2022-03-10 20:00] VITALS: BP 106/62
[2022-03-10] MEDS: ATORVASTATIN 20 MG TAB PO SCH (21:22)
[2022-03-10] MEDS: APIXABAN 5 MG TAB (ELIQUIS) PO SCH (21:22)
[2022-03-10] MEDS: LEVEMIR (INSULIN DETEMIR) 1 UNITS/0.01ML SC SCH (21:22)
[2022-03-11 00:09] VITALS: BP 120/59
[2022-03-11] MEDS: BUMETANIDE 1MG/4ML VIAL IV SCH ×2 (00:18→05:17)
[2022-03-11 04:00] VITALS: BP 114/57
[2022-03-11] MEDS: LevoFLOXacin 750 MG TABLET PO SCH (05:16)
[2022-03-11] MEDS: LEVOTHYROXINE 25MCG TABLET (0.025MG) PO SCH (05:16)
[2022-03-11 06:25] LABS: MEAN CORPUSCULAR HEMOGLOBIN 32.9 pg (27.0-33.0); MEAN CORPUSCULAR HGB CONC 33.3 g/dl (32.0-36.5); MEAN CORPUSCULAR VOLUME 98.7 fl (80.0-96.0); PLATELET COUNT, AUTOMATED 114 10^3/uL (150-450); RED BLOOD COUNT 3.04 10^6/uL (4.30-6.10); WHITE BLOOD COUNT 7.6 10^3/uL (4.0-10.0)
[2022-03-11 06:51] LABS: MAGNESIUM LEVEL 1.6 MG/DL (1.8-2.4)
[2022-03-11 06:52] LABS: CALCIUM LEVEL 8.4 MG/DL (8.3-10.6); CREATININE FOR GFR 1.83 MG/DL (0.70-1.30); GLOMERULAR FILTRATION RATE 39.4 (>49); PHOSPHORUS LEVEL 2.8 MG/DL (2.4-5.1); POTASSIUM SERUM 3.4 MMOL/L (3.5-5.1)
[2022-03-11] MEDS ORDERED: MAGNESIUM OXIDE 400MG TAB (MAG-OX) PO ONE (07:15)
[2022-03-11 07:35] LABS: C REACTIVE PROTEIN QUANTITATIV 17.9 MG/DL (<1.0)
[2022-03-11 08:00] VITALS: BP 136/72
[2022-03-11] MEDS: allopurinoL 300 MG TAB PO SCH (09:08)
[2022-03-11] MEDS: POTASSIUM CHLORIDE 10MEQ SR TABLET PO SCH ×2 (09:08→10:56)
[2022-03-11] MEDS: APIXABAN 5 MG TAB (ELIQUIS) PO SCH ×2 (09:08→22:10)
[2022-03-11] MEDS: DOCUSATE SODIUM 100MG CAPSULE PO SCH ×2 (09:08→22:10)
[2022-03-11] MEDS: ASPIRIN 81MG ENTERIC TABLET PO SCH (09:08)
[2022-03-11] MEDS: CARVedilol 12.5 MG TAB PO SCH ×2 (09:09→22:11)
[2022-03-11] MEDS: INSULIN LISPRO (NovoLOG) PER UNIT SC SCH ×4 (09:14→22:12)
[2022-03-11] MEDS: LEVEMIR (INSULIN DETEMIR) 1 UNITS/0.01ML SC SCH (10:58)
[2022-03-11 16:00] VITALS: BP 115/58
[2022-03-11 20:05] VITALS: BP 139/70
[2022-03-11] MEDS ORDERED: LEVEMIR (INSULIN DETEMIR) 1 UNITS/0.01ML SC SCH (21:00)
[2022-03-11] MEDS: ATORVASTATIN 20 MG TAB PO SCH (22:10)
[2022-03-12] VITALS: BP 129/68
[2022-03-12 04:10] VITALS: BP 117/63
[2022-03-12] MEDS: LevoFLOXacin 750 MG TABLET PO SCH (05:56)
[2022-03-12] MEDS: LEVOTHYROXINE 25MCG TABLET (0.025MG) PO SCH (05:56)
[2022-03-12 08:00] VITALS: BP 124/60
[2022-03-12 08:09] LABS: MAGNESIUM LEVEL 1.8 MG/DL (1.8-2.4)
[2022-03-12 08:10] LABS: CALCIUM LEVEL 8.1 MG/DL (8.3-10.6); CREATININE FOR GFR 1.77 MG/DL (0.70-1.30); GLOMERULAR FILTRATION RATE 40.9 (>49); PHOSPHORUS LEVEL 2.6 MG/DL (2.4-5.1)
[2022-03-12 09:32] VITALS: BP 124/60
[2022-03-12] MEDS: CARVedilol 12.5 MG TAB PO SCH (09:32)
[2022-03-12] MEDS: APIXABAN 5 MG TAB (ELIQUIS) PO SCH (09:32)
[2022-03-12] MEDS: ASPIRIN 81MG ENTERIC TABLET PO SCH (09:32)
[2022-03-12] MEDS: allopurinoL 300 MG TAB PO SCH (09:32)
[2022-03-12] MEDS: DOCUSATE SODIUM 100MG CAPSULE PO SCH (09:32)
[2022-03-12] MEDS: INSULIN LISPRO (NovoLOG) PER UNIT SC SCH ×2 (09:33→13:55)
[2022-03-12] MEDS: LEVEMIR (INSULIN DETEMIR) 1 UNITS/0.01ML SC SCH (09:33)
[2022-03-12] MEDS ORDERED: LEVO1TAB40 PO (11:38)
[2022-03-12] MEDS ORDERED: LEVEMIR (INSULIN DETEMIR) 1 UNITS/0.01ML SC SCH (21:00)
== END 2022-03-12 14:20 | disposition home health service (06) | DRG 871 ==
LOC: EDBD 21:12 → M ED 21:12 → M ED INP 03-07 04:18 → M PCU 03-08 02:10
PROVIDERS: ADMIT Family Medicine; ATTEND Internal Medicine
DX: A41.51 Sepsis due to Escherichia coli [E. coli] (principal); I21.A1 Myocardial infarction type 2; N10 Acute pyelonephritis; N17.9 Acute kidney failure, unspecified; I50.32 Chronic diastolic (congestive) heart failure; I48.92 Unspecified atrial flutter; I13.0 Hypertensive heart and chronic kidney disease with heart failure and stage 1 through stage 4 chronic kidney disease, or unspecified chronic kidney disease; E87.3 Alkalosis; I25.10 Atherosclerotic heart disease of native coronary artery without angina pectoris; E11.22 Type 2 diabetes mellitus with diabetic chronic kidney disease; E78.5 Hyperlipidemia, unspecified; E03.9 Hypothyroidism, unspecified; D63.1 Anemia in chronic kidney disease; R65.20 Severe sepsis without septic shock; N18.9 Chronic kidney disease, unspecified; D69.6 Thrombocytopenia, unspecified; G47.30 Sleep apnea, unspecified; E11.42 Type 2 diabetes mellitus with diabetic polyneuropathy; I48.91 Unspecified atrial fibrillation; I71.20 Thoracic aortic aneurysm, without rupture, unspecified; E87.6 Hypokalemia; M10.9 Gout, unspecified; R33.9 Retention of urine, unspecified; Z89.421 Acquired absence of other right toe(s); Z89.412 Acquired absence of left great toe; Z87.891 Personal history of nicotine dependence; Z79.01 Long term (current) use of anticoagulants; Z79.4 Long term (current) use of insulin; Z79.890 Hormone replacement therapy; Z79.899 Other long term (current) drug therapy

== ENCOUNTER → 2022-05-15 | Outpatient (REF) | payer MEDICARE ==
[~2022-05-15] MED LIST changes: +ACET-897 PO; +ASPI-161 PO; +BUME2TAB3 PO; +CIPR250T3 PO; +LEVO1TAB40 PO; +SYNT25TA PO
== END ==
LOC: M LAB REF 17:29
PROVIDERS: ATTEND Podiatrist
DX: L03.032 Cellulitis of left toe (principal)

== ENCOUNTER → 2022-06-26 | Outpatient (REF) | payer MEDICARE | LOC: M LAB REF 16:30 | PROVIDERS: ATTEND Podiatrist | DX: L03.032 Cellulitis of left toe (principal) ==

== ENCOUNTER → 2023-03-05 | Outpatient (REF) | payer MEDICARE ==
[2023-03-05 14:54] LABS: URIC ACID 6.7 MG/DL (3.7-9.2)
[2023-03-05 14:58] LABS: PTH INTACT 103.2 PG/ML (18.5-88.0)
== END ==
LOC: M LAB REF 08:54
PROVIDERS: ATTEND Internal Medicine
DX: N18.32 Chronic kidney disease, stage 3b (principal)

== ENCOUNTER 2023-11-30 10:27 | Emergency (ER) | payer MEDICARE ==
[~2023-11-30] VITALS: Ht 185.4 cm; Wt 116.7 kg
[~2023-11-30 10:27] MED LIST changes: -ASPI-161 PO; +ASPI-615 PO
[2023-11-30 11:38] LABS: BASO # 0.1 10^3/uL (0.0-0.2); BASO % 0.5 % (0.0-1.0); EOS # 0.8 10^3/uL (0.0-0.5); EOS % 5.7 % (0.0-3.0); HEMOGLOBIN 9.9 g/dl (13.5-17.5); LYMPH # 1.1 10^3/uL (1.5-5.0); LYMPH % 7.7 % (24.0-44.0); MEAN CORPUSCULAR HEMOGLOBIN 34.1 pg (27.0-33.0); MEAN CORPUSCULAR VOLUME 103.4 fl (80.0-96.0); MONO # 1.3 10^3/uL (0.0-0.8); MONO % 9.3 % (2.0-8.0); NEUTROPHILS # 10.5 10^3/uL (1.5-8.5); NEUTROPHILS % 76.1 % (36.0-66.0); PLATELET COUNT, AUTOMATED 251 10^3/uL (150-450); WHITE BLOOD COUNT 13.8 10^3/uL (4.0-10.0)
[2023-11-30] MEDS ORDERED: FARX1TAB3 PO (11:40)
[2023-11-30 11:51] LABS: INR 1.5; PARTIAL THROMBOPLASTIN TIME 32.7 SECONDS (24.8-34.2); PROTHROMBIN TIME 17.6 SECONDS (12.5-14.5)
[2023-11-30 12:03] LABS: CK-MB VALUE MASS 1.6 NG/ML (<3.6)
[2023-11-30 12:05] LABS: ALBUMIN 3.1 G/DL (3.2-5.2); BILIRUBIN,DIRECT 0.2 MG/DL (<0.4); BILIRUBIN,TOTAL 0.6 MG/DL (0.3-1.2); MAGNESIUM LEVEL 2.5 MG/DL (1.8-2.4); TOTAL PROTEIN 6.9 G/DL (5.7-8.2)
[2023-11-30 12:07] LABS: THYROID STIMULATING HORMONE 3.197 uIU/ML (0.55-4.78)
[2023-11-30] MEDS: NS 500 ML IV ONE ×2 (12:13→13:51)
[2023-11-30 12:14] LABS: MB/CK RELATIVE INDEX 0.66 (< OR =4)
[2023-11-30] MEDS ORDERED: POTA-151 PO (15:38)
[2023-11-30] MEDS ORDERED: BUME2TAB3 PO ×2 (15:38)
[2023-11-30] MEDS ORDERED: HOME MED LIST COMPLETE! XX SCH (15:40)
[2023-11-30] MEDS ORDERED: AUGM500T34 PO (17:13)
[2023-11-30 17:22] VITALS: BP 108/55; TEMP 97.1; O2SAT 94
== END 2023-11-30 17:33 | disposition home or self-care (01) ==
LOC: M ED 10:27
DX: N28.9 Disorder of kidney and ureter, unspecified (principal); J01.90 Acute sinusitis, unspecified; E11.9 Type 2 diabetes mellitus without complications; I10 Essential (primary) hypertension; J98.4 Other disorders of lung; Z79.01 Long term (current) use of anticoagulants; Z79.4 Long term (current) use of insulin; Z79.899 Other long term (current) drug therapy

== ENCOUNTER → 2023-12-10 | Outpatient (CLI) | payer MEDICARE ==
[~2023-12-10] MED LIST changes: +AUGM500T34 PO; +FARX1TAB3 PO
== END ==
LOC: M WUC 09:33
PROVIDERS: ATTEND Internal Medicine
DX: J18.1 Lobar pneumonia, unspecified organism (principal)

== ENCOUNTER → 2023-12-11 | Outpatient (CLI) | payer MEDICARE ==
[~2023-12-11] MED LIST changes: +ALBU8.5H INH; +CEFD1CAP9 PO; +DOXY100T27 PO
== END ==
LOC: M RAD 13:55
PROVIDERS: ATTEND Internal Medicine
DX: R63.4 Abnormal weight loss (principal); D64.9 Anemia, unspecified; K80.20 Calculus of gallbladder without cholecystitis without obstruction; R91.8 Other nonspecific abnormal finding of lung field; E27.8 Other specified disorders of adrenal gland

== ENCOUNTER → 2023-12-12 | Outpatient (CLI) | payer MEDICARE | LOC: M RAD 10:31 | PROVIDERS: ATTEND Internal Medicine | DX: R04.2 Hemoptysis (principal); R91.8 Other nonspecific abnormal finding of lung field ==

== ENCOUNTER 2024-01-07 08:00 | Outpatient (RCR) | payer MEDICARE ==
[~2024-01-07 08:00] MED LIST changes: +ASPI81TA26 PO; +ASPI81TAEC PO; +FERR1TAB8 PO; +FERR325T3 PO; +OXYC-517 PO; +PANT-23 PO; +PROT1TAB2 PO; +SUCR1TA PO
[2024-01-07] MEDS ORDERED: LIDOCAINE 1% MDV 20ML VIAL As Ordered ONE (15:13)
[2024-01-07] MEDS ORDERED: ISOVUE-300 61% 100ML VIAL As Ordered ONE (15:13)
[2024-01-07] MEDS ORDERED: fentaNYL 100 MCG/2 ML INJECTION As Ordered ONE (15:14)
[2024-01-07] MEDS ORDERED: MIDAZOLAM INJ 2MG/2ML VIAL As Ordered ONE (15:15)
[2024-01-07] MEDS ORDERED: GLUCAGON INJ 1MG VIAL As Ordered ONE (15:52)
== END 2024-01-22 ==
LOC: M ONCR 08:00
PROVIDERS: ATTEND General Practice
DX: Z51.0 Encounter for antineoplastic radiation therapy (principal); C03.1 Malignant neoplasm of lower gum